=== PATIENT | male | born 1985 | race Two or more races ===

== ENCOUNTER → 2023-11-26 13:34 | Outpatient (REF) | payer OTHER, SELFPAY | LOC: HWRAD 13:34 | PROVIDERS: ATTENDING PHYSICIAN Urology; FAMILY PHYSICIAN Family Medicine | DX: Q55.9 Congenital malformation of male genital organ, unspecified (principal) | CPT/HCPCS: 76870; 93976 ==

== ENCOUNTER 2024-04-16 23:15 | Emergency (ER) | payer OTHER, SELFPAY ==
--- NOTE | 2024-04-16 23:24 | ED.GENMED ---
History of Present Illness
<ERICK Villafana - Last Filed: 04/17/24 01:27>
General
Chief Complaint: Allergic Reaction
Source: patient and design engineering technician (patient was Slovenian speaking, had family translate)
Time Seen by Provider: 04/16/24 23:22
Nursing documentation reviewed up to this point in time: agreed with
History of Present Illness
History of Present Illness:
Patient is a 38 year old male presenting to the ED with complaints of hives x 3 hours. It started around 830pm after he had a meal consisting of pilaf, cabbage rolls, and chocolate. He states he's never ate the cabbage rolls before and it was made
of cabbage grape leaves and beef. Around 20 minutes after his meal hives started around his mid back. He tried Zyrtec which did not help. The hives have spread to his face abdomen and both extremities. He states his entire body itches. He admits his
voice has changed a little but denies any dysphagia. Patient states he has never had an allergic reaction or hives before. He denies any dizziness sob cough chest pain palpitations nausea vomiting angioedema.
Patient has no history of allergies and no chronic illnesses. He takes no medication besides a multivitamin which he has never had complications with. Patient denies tobacco use but occasionally drinks alcohol. He admits to borderline hypertension
but is not on any medication for it.
Past History
<Angella Coyle DO - Last Filed: 04/17/24 01:42>
Past History
ED Past Medical History: Other (Headaches, borderline hypertension)
ED Past Surgical History: Orthopedic (Right knee surgery)
Social History
Tobacco: Non-smoker
Alcohol: Occasional
Drug: None
Personal:
Living: with family
Employment: Not employed
Family History
Family History: Other (Noncontributory)
Review of Systems
<ERICK Villafana - Last Filed: 04/17/24 01:27>
Review of Systems
Allergies reviewed?: Yes
Other source history: family (family translating )
Constitutional: Reports no symptoms
EENT: Reports no symptoms
Respiratory: Reports no symptoms
Cardiac: Reports no symptoms
ABD/GI: Reports no symptoms
Musculoskeletal: Reports no symptoms
Skin: Reports itching and rash (full body hives )
Neurological: Reports no symptoms
Phy Exam
<ERICK Villafana - Last Filed: 04/17/24 01:27>
General Physical Exam
General Presentation: mild distress
General age: appears stated age
General Habitus: normal
General Mental: alert
ENT Exam
ENT Exam: pharynx normal and swallowing well
Cardiovascular Exam
Cardiovascular Exam: regular rate/rhythm, no edema, no gallop, no JVD and no murmur
Pulmonary Exam
Pulmonary Exam: lungs clear, no respiratory distress, no rales, chest non tender, no crackles, no rhonchi, no stridor, no wheezing and no cough
Skin Exam
Skin Exam: redness (generalized hives across the body, mostly the back face abdomen and upper thighs)
Course
<ERICK Villafana - Last Filed: 04/17/24 01:27>
Orders/Labs/Results
Orders:
Orders
04/16/24 23:37
Cardiac Monitoring- Treatment ONCE
0.9% Sodium Chloride 1000 ml [Nss] 1,000 ml IV BOLUS
Dexamethasone Sod Phosphate [Decadron] 10 mg IV NOW STA
Diphenhydramine [Benadryl] 50 mg IV NOW STA
Famotidine [Pepcid] 20 mg IV NOW STA
Vital Signs
Initial and Last Documented VS:
Initial Vital Signs
Pulse Resp Pulse Ox
119 20 98
04/16/24 23:53 04/16/24 23:53 04/16/24 23:53
Last Documented Vital Signs
Temp Pulse Resp BP Pulse Ox
98.4 F 102 17 134/93 100
04/17/24 00:28 04/17/24 00:13 04/17/24 00:13 04/17/24 00:13 04/17/24 00:13
<Angella Coyle DO - Last Filed: 04/17/24 01:42>
Orders/Labs/Results
Orders:
Orders
04/16/24 23:37
Cardiac Monitoring- Treatment ONCE
0.9% Sodium Chloride 1000 ml [Nss] 1,000 ml IV BOLUS
Dexamethasone Sod Phosphate [Decadron] 10 mg IV NOW STA
Diphenhydramine [Benadryl] 50 mg IV NOW STA
Famotidine [Pepcid] 20 mg IV NOW STA
Vital Signs
Initial and Last Documented VS:
Initial Vital Signs
Pulse Resp Pulse Ox
119 20 98
04/16/24 23:53 04/16/24 23:53 04/16/24 23:53
Last Documented Vital Signs
Temp Pulse Resp BP Pulse Ox
98.4 F 102 17 134/93 100
04/17/24 00:28 04/17/24 00:13 04/17/24 00:13 04/17/24 00:13 04/17/24 00:13
<ERICK Villafana - Last Filed: 04/17/24 01:27>
MDM/Problems Addressed
Differential Diagnosis Includes:
allergic reaction, anaphylaxis
MDM/Problems Addressed:
give fluids Decadron Benadryl and Pepcid to alleviate symptoms, monitor 1232a update medication has somewhat alleviated symptoms. 127a update hives clearing on face patient feels much better.
<ERICK Villafana - Last Filed: 04/17/24 01:27>
*Critical Care Note
Total Time (30-74mins, 75-104mins- exclusive of procedures): Not Applicable
ED Attending Note
<ERICK Villafana - Last Filed: 04/17/24 01:27>
-
Portions of this chart may have been created with voice recognition software.� Occasional wrong word or��sound alike� substitutions may have occurred due to the inherent limitations of voice recognition software.
<Angella Coyle DO - Last Filed: 04/17/24 01:42>
ED Attending Note
Patient seen and examined by attending physician: Yes
I performed the substantive portion of visit, reviewed & personally made and approve the management plan that is documented in note by myself or YANA.: Yes
ED Attending Note:
This is a 38-year-old gentleman with no significant past medical history, takes no medicines on a daily basis who presents with his with complaints of abrupt onset of generalized hives that began this evening. No history of similar episodes in
the past. He does admit to mild sore throat and feeling a sense that his voice is mildly deeper in nature but denies cough no shortness of breath, no stridor nor difficulty swallowing, no abdominal pain, no nausea nor vomiting or diarrhea.
He admits to eating a new [place]ian/Vietnamese food tonight. Other than this no known exposure to any new household products, no new pets at home.
He has not taken anything for his symptoms.
GENERAL: 38-year-old overweight gentleman, primary language is Slovenian, appears mildly uncomfortable but easily communicative and otherwise in no acute distress. is accompanying. Language line design engineering technician utilized.
EYE: pupils equal and reactive. anicteric
NECK: Supple, nontender, no meningismus, no significant adenopathy.
ENT: posterior pharynx is clear, oral mucosa is moist. TM clear b/l, nares patent. There is no angioedema. Speech is clear without stridor nor hoarseness.
CARDIAC: Regular rate and rhythm. no murmur.
LUNGS: Clear breath sounds bilaterally, no acute respiratory distress, no wheezes/rales/rhonchi
ABDOMEN: Soft, nondistended, without focal tenderness, normoactive BS.
NEUROLOGICAL: Alert and oriented x3, no focal neuro deficits.
SKIN: Warm and dry, normal color, skin intact. Generalized urticaria most pronounced on face, neck.
MUSCULOSKELETAL: No C/C/E. peripheral pulses are full and equal b/l. No palpable tenderness.
PSYCH: Normal and appropriate interaction.
Patient presents with acute generalized urticarial rash consistent with acute allergic reaction. There is no angioedema, posterior pharynx is clear. He remains hemodynamically stable. No evidence of anaphylaxis.
New food consumed tonight could certainly be causative agent and recommend he avoid in the future.
Will treat with IV Benadryl, Pepcid, Decadron.
To consider IM epinephrine if hives have not resolved or if symptoms worsen.
At this point no indication for laboratory studies nor imaging.
04/17/2024 0137 AM
Patient resting comfortably.
Hives have resolved.
Will discharge to home with prescription for tapering dose of prednisone, short course of daily Zyrtec as well as prescription for as needed Benadryl.
As above recommend he avoid consuming that similar dish.
Follow-up with PCP for recheck.
Discharge Plan
Departure
Patient Disposition: Home (Routine Discharge)
Date of Disposition: 04/17/24
Time of Disposition: 01:34
Patient with high blood pressure during this ER visit?: Yes
Condition: Good
Discharge Problem:
Acute allergic reaction
Instructions: Hives (DC), Allergic Reaction ED, BLOOD PRESSURE
Prescriptions:
New
prednisone 10 mg Tablet
See Rx Instructions .ROUTE .COMPLEX Qty: 30 0RF
Rx Instructions:
Take By Mouth:
40 mg daily x3 days, 30 mg daily x3 days,
20 mg daily x3 days, 10 mg daily x3 days.
cetirizine [Zyrtec] 10 mg tablet
10 mg PO DAILY Qty: 10 0RF
Benadryl Allergy 50 mg tablet
50 mg PO Q6H PRN (Reason: allergy symptoms) Qty: 20 0RF
No Action
multivitamin Tablet
1 tab PO DAILY
Referrals:
Maldonado Lewis, [Family Provider] - Call in 1-3 days for appt
Interventions
Interventions:
*Risk Screen - Suicide Last Done: 04/16/24 23:40
*General Assessment Last Done: 04/16/24 23:40
*Neglect/Abuse Screening Last Done: 04/16/24 23:40
ED- Fall Risk Assessment Last Done: 04/16/24 23:40
*ED COVID-19 Vaccine History Last Done: 04/16/24 23:40
ED- Cardiac Assessment Last Done: 04/16/24 23:40
ED- Pulmonary Assessment Last Done: 04/16/24 23:40
ED-Skin Assessment Last Done: 04/16/24 23:40
Discharge Date and Time
Print Language: Slovenian
[2024-04-16] MEDS: NSS 1000 IV (23:44)
[2024-04-16] MEDS: PEPCID 20 MG IV (23:44)
[2024-04-16] MEDS: DECADRON 10 MG IV (23:44)
[2024-04-16] MEDS: BENADRYL 50 MG IV (23:45)
[2024-04-16 23:56] VITALS: BP 158/99
[2024-04-17] VITALS: BP 135/91
[2024-04-17 00:13] VITALS: BP 134/93
[2024-04-17 01:00] VITALS: BP 126/67
== END 2024-04-17 01:20 | disposition home or self-care (01) ==
LOC: EMR 23:15
PROVIDERS: EMERGENCY PHYSICIAN Emergency Medicine; FAMILY PHYSICIAN Family Medicine
DX: L50.0 Allergic urticaria (principal)
CPT/HCPCS: 99282; 96374; 96375

== ENCOUNTER 2024-04-18 00:49 | Emergency (ER) | payer OTHER, SELFPAY ==
[2024-04-18 00:53] VITALS: BP 150/88
[2024-04-18 01:27] VITALS: BMI 34.5
[2024-04-18] MEDS: BENADRYL 25 MG IV (01:33)
[2024-04-18] MEDS: PEPCID 20 MG IV (01:35)
[2024-04-18] MEDS: DECADRON 10 MG IV (01:38)
[2024-04-18 01:41] VITALS: BP 123/82
[2024-04-18 02:00] VITALS: BP 121/75
--- NOTE | 2024-04-18 02:01 | ED.GENMED ---
History of Present Illness
General
Chief Complaint: Allergic Reaction
Source: patient
Exam Limitations: none
Time Seen by Provider: 04/18/24 01:06
History of Present Illness
History of Present Illness:
38-year-old male presents for reevaluation. He was here last evening for an allergic reaction. He had improvement of symptoms after Decadron Benadryl and Pepcid. He thinks it may have a reaction to food he ate. He denies any throat closing
sensation or difficulty breathing. He was prescribed prednisone however he was not able to get his pharmacy to fill it. He took a Benadryl prior to arrival. No fever. No chest pain. No vomiting. No other complaints
Past History
Past History
ED Past Medical History: Other (Headaches, borderline hypertension)
ED Past Surgical History: Orthopedic (Right knee surgery)
Social History
Tobacco: Non-smoker
Alcohol: Occasional
Drug: None
Personal:
Living: with family
Employment: Not employed
Family History
Family History: Other (Noncontributory)
Phy Exam
Physical Exam
Physical Exam:
General: Well-appearing nontoxic male no acute respiratory distress
HEENT: Normocephalic atraumatic posterior pharynx patent no trismus or drooling
Heart: Regular rate and rhythm no murmurs
Lungs: Clear no wheeze
Skin: Urticarial rash over the trunk and arms. This is blanchable. It is pruritic but not indurated or fluctuant
Extremities: No cyanosis
Abdomen is soft nontender nondistended
Course
Orders/Labs/Results
Orders:
Orders
04/18/24 01:19
Dexamethasone Sod Phosphate [Decadron] 10 mg IV NOW STA
Diphenhydramine [Benadryl] 25 mg IV NOW STA
Famotidine [Pepcid] 20 mg IV NOW STA
Vital Signs
Initial and Last Documented VS:
Initial Vital Signs
Temp Pulse Resp BP Pulse Ox
98.8 F 79 18 150/88 97
04/18/24 00:53 04/18/24 00:53 04/18/24 00:53 04/18/24 00:53 04/18/24 00:53
Last Documented Vital Signs
Temp Pulse Resp BP Pulse Ox
98.8 F 67 16 121/75 96
04/18/24 00:53 04/18/24 02:00 04/18/24 01:41 04/18/24 02:00 04/18/24 02:00
MDM/Problems Addressed
Differential Diagnosis Includes:
Allergic reaction unclear etiology perhaps to some food he ate. He was here last evening for the same but was unable to fill his prednisone
Was given Decadron here as well as Benadryl and Pepcid IV.
*Critical Care Note
Total Time (30-74mins, 75-104mins- exclusive of procedures): Not Applicable
Update Note
Update Note:
Patient's rash is significantly improved after treatment here. He is feeling much better. Prescription was sent to his pharmacy for more steroid. Stable for discharge
ED Attending Note
-
Portions of this chart may have been created with voice recognition software.� Occasional wrong word or��sound alike� substitutions may have occurred due to the inherent limitations of voice recognition software.
Discharge Plan
Departure
Patient Disposition: Home (Routine Discharge)
Date of Disposition: 04/18/24
Time of Disposition: 02:13
Patient with high blood pressure during this ER visit?: No
Discharge Problem:
Allergic reaction
Instructions: Gino (DC)
Prescriptions:
New
prednisone 10 mg Tablet
See Rx Instructions .ROUTE .COMPLEX Qty: 30 0RF
Rx Instructions:
Take By Mouth:
40 mg daily x3 days, 30 mg daily x3 days,
20 mg daily x3 days, 10 mg daily x3 days.
No Action
multivitamin Tablet
1 tab PO DAILY
prednisone 10 mg Tablet
See Rx Instructions .ROUTE .COMPLEX Qty: 30 0RF
Rx Instructions:
Take By Mouth:
40 mg daily x3 days, 30 mg daily x3 days,
20 mg daily x3 days, 10 mg daily x3 days.
cetirizine [Zyrtec] 10 mg tablet
10 mg PO DAILY Qty: 10 0RF
Benadryl Allergy 50 mg tablet
50 mg PO Q6H PRN (Reason: allergy symptoms) Qty: 20 0RF
Referrals:
Maldonado Lewis, DO [Family Provider] -
Activity Restrictions/Additional Instructions:
Continue Benadryl as needed every 4 hours. Use steroid as directed. Return if needed
Interventions
Interventions:
*Risk Screen - Suicide Last Done: 04/18/24 00:53
*General Assessment Last Done: 04/18/24 00:53
*Neglect/Abuse Screening Last Done: 04/18/24 00:53
*ED COVID-19 Vaccine History Last Done: 04/18/24 00:53
*Nursing Disposition Last Done: 04/18/24 02:28
ED- Cardiac Assessment Last Done: 04/18/24 01:45
ED- Pulmonary Assessment Last Done: 04/18/24 01:45
ED-Skin Assessment Last Done: 04/18/24 01:45
Discharge Date and Time
Discharge Date/Time: 04/18/24 02:28
Print Language: [place]an
== END 2024-04-18 02:28 | disposition home or self-care (01) ==
LOC: EMR 00:49
PROVIDERS: EMERGENCY PHYSICIAN Emergency Medicine; FAMILY PHYSICIAN Family Medicine
DX: T78.40XA Allergy, unspecified, initial encounter (principal); L50.0 Allergic urticaria; X58.XXXA Exposure to other specified factors, initial encounter
CPT/HCPCS: 99284; 96374; 96375 ×2